=== PATIENT | female | born 1950 ===

== ENCOUNTER 2022-11-15 14:04 | Emergency (ER) | payer OTHER ==
[~2022-11-15] VITALS: Ht 162.6 cm; Wt 90.7 kg
[2022-11-15] MEDS ORDERED: LEVOTHYROXINE88 MCG (14:32)
[2022-11-15] MEDS ORDERED: BISOPROLOL-HCT1 EACH (14:32)
[2022-11-15] MEDS ORDERED: VENLAFAXINE HCL75 M1 (14:32)
[2022-11-15] MEDS ORDERED: ATORVASTATIN CA10 MG (14:33)
[2022-11-15] MEDS ORDERED: AMLODIPINE BESYL5 MG (14:33)
[2022-11-15] MEDS ORDERED: DRAMAMINE25 M1 PO (17:22)
== END 2022-11-15 17:39 | disposition home or self-care (01) ==
LOC: ER 14:04
DX: R42 Dizziness and giddiness (principal); Z88.0 Allergy status to penicillin; E03.9 Hypothyroidism, unspecified; I10 Essential (primary) hypertension